=== PATIENT | male | born 1955 | race Caucasian/White ===

== ENCOUNTER 2021-09-25 13:20 | Emergency (ER) | payer MEDICARE, OTHER ==
[~2021-09-25] VITALS: Ht 180.3 cm; Wt 72.0 kg
[2021-09-25 15:00] LABS: CHLORIDE 107 mEq/L (98-107)
[2021-09-25 15:09] LABS: BASOPHILS % 0.4 % (0.0-2.0); EOSINOPHILS % 0.3 % (0.0-5.0); HEMATOCRIT. 43.7 % (42.0-52.0); HEMOGLOBIN. 14.7 g/dL (14.0-18.0); LYMPHOCYTES % 13.9 % (20.0-50.0); MEAN CORPUSCULAR HEMOGLOBIN 29.7 pg (28.0-32.0); MEAN CORPUSCULAR VOLUME 88.5 fL (80.0-94.0); MEAN PLATELET VOLUME 10.6 fl (7.4-10.4); MONOCYTES % 4.5 % (2.0-8.0); NEUTROPHILS % 80.9 % (40.0-76.0); PLATELET 170 x1000/uL (130-400); RED BLOOD CELL COUNT 4.94 mill/uL (4.7-6.1); RED CELL DISTRIBUTION WIDTH 13.5 % (11.6-14.6)
[2021-09-25] MEDS ORDERED: SODIUM CHLORIDE 0.9% 1,000 ML IV ONE (16:30)
[2021-09-25] MEDS ORDERED: MORPHINE SULFATE 4 MG/ML CPJ (NOT FOR IM USE) IV STA (16:38)
[2021-09-25] MEDS ORDERED: ONDANSETRON HCL 4MG/2ML INJ IV STA (16:38)
[2021-09-25] MEDS ORDERED: IOHEXOL-300 100 ML BOTTLE ONE (18:18)
[2021-09-25] MEDS ORDERED: MORPHINE SULFATE 4 MG/ML CPJ (NOT FOR IM USE) IV ONE (18:45)
[2021-09-25 20:00] VITALS: BP 143/88
== END 2021-09-25 20:42 | disposition left against medical advice (07) ==
LOC: EDBD 13:20 → ER 13:55
DX: S40.011A Contusion of right shoulder, initial encounter (principal); S00.83XA Contusion of other part of head, initial encounter; S50.01XA Contusion of right elbow, initial encounter; R94.5 Abnormal results of liver function studies; R55 Syncope and collapse; V18.0XXA Pedal cycle driver injured in noncollision transport accident in nontraffic accident, initial encounter; Y93.89 Activity, other specified
CPT/HCPCS: 36415; 70450; 70486; 71045; 71260; 72125; 72170; 73080; 74177; 80053; 84484; 85025; 96361; 96374; 96375; 96376; 99285; J2270; J2405; J7030; Q9967